=== PATIENT | male | born 1950 | race Caucasian/White ===

== ENCOUNTER 2018-03-20 04:40 | Outpatient (CLI) | payer MEDICARE ==
[~2018-03-20 04:40] MED LIST: AMLO10TA13 PO; LEVO75TA7 PO; MECL-111 PO; MECL25TA3 PO; METF10002 PO; ONDA4TAB12 PO; PIOG30TA27 PO; PRAV20TA4 PO
== END 2018-03-20 23:59 | disposition home or self-care (01) ==
LOC: DIABETIC 04:40
PROVIDERS: ATTEND Family Medicine
DX: E11.65 Type 2 diabetes mellitus with hyperglycemia (principal); I10 Essential (primary) hypertension
CPT/HCPCS: G0108

== ENCOUNTER 2018-06-19 01:05 | Outpatient (CLI) | payer MEDICARE ==
[~2018-06-19 01:05] MED LIST changes: -METF10002 PO; +METF10004 PO; -PIOG30TA27 PO; +PIOG30TA71 PO
== END 2018-06-19 23:59 | disposition home or self-care (01) ==
LOC: DIABETIC 01:05
PROVIDERS: ATTEND Family Medicine
DX: E11.65 Type 2 diabetes mellitus with hyperglycemia (principal); I10 Essential (primary) hypertension; E11.40 Type 2 diabetes mellitus with diabetic neuropathy, unspecified; E11.21 Type 2 diabetes mellitus with diabetic nephropathy; E11.319 Type 2 diabetes mellitus with unspecified diabetic retinopathy without macular edema; I67.9 Cerebrovascular disease, unspecified; E78.5 Hyperlipidemia, unspecified; E11.43 Type 2 diabetes mellitus with diabetic autonomic (poly)neuropathy; K31.84 Gastroparesis; Z79.899 Other long term (current) drug therapy
CPT/HCPCS: G0108

== ENCOUNTER 2020-05-28 21:54 | Emergency (ER) | payer BC, MEDICARE ==
[~2020-05-28] VITALS: Ht 177.8 cm; Wt 145.0 kg
[~2020-05-28 21:54] MED LIST changes: -MECL-111 PO; +MECL-159 PO; +METF-438 PO; -METF10004 PO
[2020-05-28 22:42] VITALS: BP 151/98
== END 2020-05-28 23:09 | disposition home or self-care (01) ==
LOC: ER 21:55
DX: S01.81XA Laceration without foreign body of other part of head, initial encounter (principal); H59.89 Other postprocedural complications and disorders of eye and adnexa, not elsewhere classified; E78.00 Pure hypercholesterolemia, unspecified; I10 Essential (primary) hypertension; E11.9 Type 2 diabetes mellitus without complications; E03.9 Hypothyroidism, unspecified; Z79.899 Other long term (current) drug therapy; Z91.018 Allergy to other foods; Z98.890 Other specified postprocedural states; X58.XXXA Exposure to other specified factors, initial encounter; Y93.89 Activity, other specified; Y92.89 Other specified places as the place of occurrence of the external cause; Y99.9 Unspecified external cause status
CPT/HCPCS: 12011; 12020; 99282; 99284

== ENCOUNTER 2020-09-01 04:42 | Inpatient (IN) | payer BC, MEDICARE ==
[2020-08-31] MEDS: MESSAGE TO NURSING PO NR ×2 (06:00→10:00)
[2020-09-01] VITALS (10 sets, daily range): BP systolic 88–148; BP diastolic 44–105
[~2020-09-01] VITALS: Ht 177.8 cm; Wt 136.0 kg
[2020-09-01] MEDS ORDERED: morphine 4 MG/ML inj SYRINge IV PRN ×2 (04:50→09:30)
[2020-09-01] MEDS ORDERED: normal saline 1000ML IV soln IVB ONE ×2 (04:50→07:40)
[2020-09-01] MEDS ORDERED: ondansetron/PF 4mg/2ml inj IV ONE ×3 (04:50→09:25)
[2020-09-01] MEDS ORDERED: ketorolac trometh. 30mg/ml inj. IV ONE (05:10)
[2020-09-01] MEDS ORDERED: iohexol 300mg/ml 100ml inj. ONE (06:01)
[2020-09-01 06:12] LABS: BASOPHILS # (AUTO) 0.1 X10'3 (0-0.2); BASOPHILS % (AUTO) 0.4 % (0-1); EOSINOPHILS % (AUTO) 0.1 % (0-6); HEMATOCRIT 38.7 % (42.0-52.0); HEMOGLOBIN 12.5 g/dl (14.0-17.9); LYMPHOCYTES % (AUTO) 5.9 % (21-51); MEAN CORPUSCULAR HEMOGLOBIN 30.6 PG (27.0-31.0); MEAN CORPUSCULAR HGB CONC 32.4 g/dL (33.0-36.5); MEAN CORPUSCULAR VOLUME 94.4 FL (78-98); MEAN PLATELET VOLUME 9.4 FL (7.4-10.4); MONOCYTES % (AUTO) 6.5 % (2-12); NEUTROPHILS # (AUTO) 14.1 X10'3 (1.8-7.7); NEUTROPHILS % (AUTO) 87.1 % (42-75); PLATELET COUNT 262 X10'3 (140-440); RED CELL DISTRIBUTION WIDTH 15.3 % (11.5-14.5); WHITE BLOOD COUNT 16.1 X10'3 (4.5-11.0)
[2020-09-01 06:23] LABS: ALANINE AMINOTRANSFERASE 14 U/L (12-78); ALBUMIN 2.9 G/DL (3.4-5.0); ALBUMIN/GLOBULIN RATIO 0.9 (1.1-1.5); ALKALINE PHOSPHATASE 67 IU/L (46-116); ANION GAP 13 (8-16); ASPARTATE AMINO TRANSFERASE 12 U/L (10-37); BILIRUBIN,TOTAL 1.1 MG/DL (0.1-1.0); BLOOD UREA NITROGEN 17 MG/DL (7-18); BUN/CREATININE RATIO 16.3 (5.4-32.0); CHLORIDE 107 MMOL/L (99-107); CREATININE 1.04 MG/DL (0.60-1.10); GLUCOSE 243 MG/DL (70-104); LIPASE 71 U/L (73-393); POTASSIUM 3.9 MMOL/L (3.5-5.1); SODIUM 143 MMOL/L (135-145); TOTAL CARBON DIOXIDE 23.3 MMOL/L (24-32); eGFR 70 ML/MIN
--- NOTE | 2020-09-01 07:38 | NUR ---
DR MATTHEWS MADE AWARE OF BP 93/48, SPO2 89% ON ROOM AIR, PLACED ON O2 3L VIA NC SPO2 95%, PATIENT NAUSEOUS, MED ORDER RECEIVED (SEE EMAR).
[2020-09-01] MEDS ORDERED: atropine 0.1mg/ml 10ml syringe ONE (08:00)
[2020-09-01] MEDS ORDERED: epiNEPHrine 0.1mg/ml 10ml syringe ONE (08:00)
[2020-09-01 08:11] LABS: PARTIAL THROMBOPLASTIN TIME 28 SECONDS (22-32)
[2020-09-01 08:29] LABS: CLARITY,URINE SLIGHTLY CLOUDY (Clear); GLUCOSE, URINE NEGATIVE (Neg); KETONES,URINE TRACE mg/dl (Neg); LEUKOCYTE ESTERASE ,URINE TRACE (Neg); NITRITES, URINE NEGATIVE (Neg); OCCULT BLOOD,URINE LARGE (Neg); PROTEIN,URINE 100 mg/dl (Neg); UROBILINOGEN,URINE 0.2 E.U/dL (0.2-1.0)
[2020-09-01 08:32] LABS: HEMOGLOBIN 10.8 g/dl (14.0-17.9); MEAN CORPUSCULAR HEMOGLOBIN 31.6 PG (27.0-31.0); MEAN CORPUSCULAR HGB CONC 32.9 g/dL (33.0-36.5); MEAN CORPUSCULAR VOLUME 96.3 FL (78-98); MEAN PLATELET VOLUME 9.5 FL (7.4-10.4); PLATELET COUNT 209 X10'3 (140-440); RED BLOOD COUNT 3.43 X10'6 (4.70-6.10); RED CELL DISTRIBUTION WIDTH 15.5 % (11.5-14.5); WHITE BLOOD COUNT 18.3 X10'3 (4.5-11.0)
[2020-09-01 08:36] LABS: COLOR,URINE DARK YELLOW (Yellow); UA COLLECTION TYPE STRAIGHT CATH
[2020-09-01 08:37] LABS: WBC,URINE 0-4 /HPF (0-4)
[2020-09-01 08:38] LABS: BACTERIA,URINE 1+ /HPF (Neg)
[2020-09-01 08:39] LABS: AMORPHOUS URATES 1+; HYALINE CASTS 0-3 /LPF (NEGATIVE); MUCUS STRANDS FEW /LPF (Neg); SQUAMOUS EPITHELIAL CELL,UR FEW /LPF (FEW)
[2020-09-01] MEDS ORDERED: LIDOcaine 2% 10ml TOPICAL JELLY (Urojet) TP ONE ×2 (09:00→09:30)
[2020-09-01] MEDS ORDERED: enoxaparin 100mg/ml syringe SUBCUT ONE (09:05)
[2020-09-01] MEDS ORDERED: clopidogrel 300mg tablet PO ONE (09:05)
[2020-09-01] MEDS ORDERED: fentaNYL/PF 50MCG/1 ML 2ML syringe IV ONE (09:25)
[2020-09-01] MEDS ORDERED: SOTA80TA73 PO (09:27)
[2020-09-01] MEDS ORDERED: TELM80TA9 PO (09:27)
[2020-09-01] MEDS ORDERED: LEVO100T PO (09:27)
[2020-09-01] MEDS ORDERED: RIVA20TA PO (09:27)
[2020-09-01] MEDS ORDERED: ondansetron/PF 4mg/2ml inj IV PRN (09:30)
[2020-09-01] MEDS ORDERED: magnesium hydroxide 30ml (MOM) UD suspension PO PRN (09:30)
[2020-09-01] MEDS ORDERED: sodium phosphate inj. 30 MMOL in dextrose 5%-water 250 ML IV PRN (09:30)
[2020-09-01] MEDS ORDERED: acetaminophen 325mg tablet PO PRN ×2 (09:30)
[2020-09-01] MEDS ORDERED: potassium Cl 20 mEq SR tablet PO PRN ×2 (09:30)
[2020-09-01] MEDS ORDERED: magnesium 4gm in 100ml NS 100 ML IV PRN (09:30)
[2020-09-01] MEDS ORDERED: magnesium 2GM in 50ml NS 50 ML IV PRN (09:30)
[2020-09-01] MEDS ORDERED: normal saline 1000ml 1,000 ML IV SCH (09:30)
[2020-09-01] MEDS ORDERED: magnesium Cl slow-release 64mg tablet PO PRN (09:30)
[2020-09-01] MEDS ORDERED: potassium CL 10mEq/100ml bag 100 ML IV PRN (09:30)
[2020-09-01] MEDS ORDERED: pantoprazole 40 MG vial IV SCH (09:30)
[2020-09-01] MEDS ORDERED: morphine 2 MG/ML inj. syringe IV PRN (09:30)
[2020-09-01] MEDS ORDERED: sodium phosphate inj. 15 MMOL in dextrose 5%-water 250 ML IV PRN (09:30)
[2020-09-01] MEDS ORDERED: Neutra Phos packet PO PRN (09:30)
[2020-09-01] MEDS: MESSAGE TO NURSING PO NR (10:09)
[2020-09-01 10:15] LABS: LDL CHOLESTEROL 55 MG/DL (50-100)
--- NOTE | 2020-09-01 14:08 | NUR ---
DR SO AT BEDSIDE TO RE ASSESS PATIENT. 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 PER NS INFUSION INCREASED TO 125 ML/HR. Addendum: 09/01/20 at [address] SO MADE AWARE URINE OUTPUT 40 ML SINCE INSERTION AT 0940 THIS AM.
[2020-09-01 17:29] LABS: BASOPHILS % (AUTO) 0.1 % (0-1); EOSINOPHILS % (AUTO) 0 % (0-6); HEMATOCRIT 32.8 % (42.0-52.0); HEMOGLOBIN 10.8 g/dl (14.0-17.9); LYMPHOCYTES # (AUTO) 1.2 X10'3 (1.1-4.8); LYMPHOCYTES % (AUTO) 5.9 % (21-51); MEAN CORPUSCULAR HGB CONC 32.8 g/dL (33.0-36.5); MEAN CORPUSCULAR VOLUME 91.3 FL (78-98); MEAN PLATELET VOLUME 9.4 FL (7.4-10.4); MONOCYTES # (AUTO) 1.4 X10'3 (0-0.9); NEUTROPHILS # (AUTO) 17.2 X10'3 (1.8-7.7); PLATELET COUNT 197 X10'3 (140-440); RED BLOOD COUNT 3.59 X10'6 (4.70-6.10); RED CELL DISTRIBUTION WIDTH 17.7 % (11.5-14.5); WHITE BLOOD COUNT 19.8 X10'3 (4.5-11.0)
--- NOTE | 2020-09-01 19:33 | NUR ---
NOTED ASYSTOLE ON MONITOR, UPON ENTERING ROOM PT UNRESPONSIVE. CPR INITIATED. SEE CODE CHARTING FOR DETAILS. APPROX 5 MINUTES PRIOR PT RESPONSIVE AND TALKING.
--- NOTE | 2020-09-01 19:34 | NUR ---
Received report from Carmelo in the ER regarding Aakash Peralta. I had the opportunity to ask questions.
[2020-09-01] MEDS ORDERED: CISatracurium besylate inj. 100 MG in normal saline 100ml IV soln 90 ML IV PRN (20:15)
[2020-09-01] MEDS ORDERED: CISatracurium **Bolus** 2 mg/ml inj IV PRN (20:15)
--- NOTE | 2020-09-01 22:24 | NUR ---
[employer] CALLING WITH UPDATE, PT IS NOT A CANDIDATE Dt HX OF HEPITITIS. PER pRIMARY rn Elsa, FAMILY HAS STILL NOT BEEN SUCESSFULLY CONTACTED. 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
== END 2020-09-02 00:17 | disposition expired | DRG 315 ==
LOC: ER 04:42 → ED HOLD 09:26
PROVIDERS: ADMIT Internal Medicine Critical Care Medicine; ATTEND Internal Medicine Critical Care Medicine
PROC: 30233N1 Transfusion of Nonautologous Red Blood Cells into Peripheral Vein, Percutaneous Approach (ICD-10-PCS; principal; 2020-09-01)
PROC: 5A12012 Performance of Cardiac Output, Single, Manual (ICD-10-PCS; 2020-09-01)
PROC: 0BH17EZ Insertion of Endotracheal Airway into Trachea, Via Natural or Artificial Opening (ICD-10-PCS; 2020-09-01)
PROC: BW211ZZ Computerized Tomography (CT Scan) of Abdomen and Pelvis using Low Osmolar Contrast (ICD-10-PCS; 2020-09-01)
DX: R58 Hemorrhage, not elsewhere classified (principal); I48.20 Chronic atrial fibrillation, unspecified; R57.9 Shock, unspecified; Z68.41 Body mass index [BMI] 40.0-44.9, adult; D64.9 Anemia, unspecified; E03.9 Hypothyroidism, unspecified; E11.9 Type 2 diabetes mellitus without complications; E78.00 Pure hypercholesterolemia, unspecified; G89.29 Other chronic pain; X58.XXXA Exposure to other specified factors, initial encounter; I10 Essential (primary) hypertension; I46.9 Cardiac arrest, cause unspecified; E66.9 Obesity, unspecified; M54.5 Low back pain; Z91.018 Allergy to other foods; Z79.899 Other long term (current) drug therapy; Y93.89 Activity, other specified; Y92.89 Other specified places as the place of occurrence of the external cause; Y99.8 Other external cause status
CPT/HCPCS: 36415; 36430; 71045; 74177; 80053; 81001; 82948; 83605; 83690; 83721; 84443; 85025; 85027; 85610; 85730; 86885; 86900; 86901; 86920; 87088; 92950; 96374; 99285; C9113; G0378; J0171; J0461; J1885; J2270; J2405; J7030; P9016; Q9967